=== PATIENT | female | born 1970 | race Caucasian/White ===

== ENCOUNTER 2020-05-09 10:42 | Emergency (ER) | payer OTHER ==
[~2020-05-09] VITALS: Ht 157.5 cm; Wt 56.7 kg
[~2020-05-09 10:42] MED LIST: COUGH & COLD S118 ML PO
== END 2020-05-09 13:05 | disposition home or self-care (01) ==
LOC: ED 10:42
DX: S20.211A Contusion of right front wall of thorax, initial encounter (principal); W01.0XXA Fall on same level from slipping, tripping and stumbling without subsequent striking against object, initial encounter
CPT/HCPCS: 71100; 99283-25

== ENCOUNTER 2024-10-23 10:19 | Day surgery (SDC) | payer OTHER ==
[2024-09-11 12:17] VITALS: BP 105/49
[2024-10-17 17:55] VITALS: BP 105/49
[~2024-10-23] VITALS: Ht 157.5 cm; Wt 66.0 kg
[~2024-10-23 10:19] MED LIST changes: +ADVIL MIGRAINE200 MG PO; +IBLOOD GLUCOSE TEST STRIP 1 EA TEST VI PRN; +LACTATED RINGER'S 1,000 ML IV SCH; +LIDOCAINE HCL 1% 5 ML SDV INJ ONE; +MULTI-VITAMIN1 EACH PO; +TYLENOL325 MG PO
[2024-10-23 10:34] VITALS: BP 106/61
[2024-10-23] MEDS ORDERED: KETOROLAC TROMETHAMINE 30 MG/ML VIAL ONE (13:50)
[2024-10-23] MEDS ORDERED: LIDOCAINE HCL 2% 5 ML SDV ONE (13:50)
[2024-10-23] MEDS ORDERED: GLUCAGON,HUMAN RECOMBINANT 1 MG/ML VIAL ONE (14:01)
--- NOTE | 2024-10-23 14:12 | NUR ---
10/23/24 1412 Sheets,Pao 1405 PT ARRIVED TO PACU ON RA, PT ASLEEP AND RESP EVEN AND UNLABORED. PT NONAROUSABLE TO VERBAL STIMULI. VSS.
[2024-10-23 14:44] VITALS: BP 113/73
== END 2024-10-23 14:54 | disposition home or self-care (01) ==
LOC: DS 10:19
PROVIDERS: ATTEND Surgery
PROC: 0DJD8ZZ Inspection of Lower Intestinal Tract, Via Natural or Artificial Opening Endoscopic (ICD-10-PCS; principal; 2024-10-23 11:35)
DX: Z12.11 Encounter for screening for malignant neoplasm of colon (principal); K59.00 Constipation, unspecified
CPT/HCPCS: J1610; J1885; J2003; J2704; J7121